=== PATIENT | male | born 1975 | race Caucasian/White ===

== ENCOUNTER 2020-01-05 10:20 | Emergency (ER) | payer OTHER ==
[2020-01-05 10:27] VITALS: BP 136/84; PULSE 73; RESP 19; TEMP 97.9
--- NOTE | 2020-01-05 11:19 | CT ---
EXAMINATION TYPE: CT brain wo con DATE OF EXAM: 01/05/2020 COMPARISON: None HISTORY: headache, light sensitivity, hx of head injury earlier this week CT DLP: 1099.[address] of the brain was performed. The ventricles, basal cisterns and sulci overlying the cerebral convexities demonstrate a normal appe arance. There is no evidence for intracranial hemorrhage or sulcal effacement. No mass effects are seen. Osseous calvarium is intact. If symptoms persist consider MRI as clinically warranted. IMPRESSION: 1. No acute intracranial process is seen at this time.
[2020-01-05] MEDS ORDERED: HYDROmorphone 0.5 MG/0.5 ML SYRINGE IVP STA (11:32)
[2020-01-05] MEDS ORDERED: KETOROLAC 30 MG/ML 1 ML VIAL IVP STA (11:33)
[2020-01-05] MEDS ORDERED: ONDANSETRON 4 MG/2 ML VIAL IVP STA (11:33)
[2020-01-05] MEDS ORDERED: SODIUM CHLORIDE 0.9% 1,000 ML IV ONE (11:33)
--- NOTE | 2020-01-05 11:55 | ED ---
Headache HPI - General Chief Complaint: Headache Stated Complaint: Dizziness Time Seen by Provider: 01/05/20 10:42 Mode of arrival: ambulatory Limitations: no limitations - History of Present Illness Initial Comments: 44-year-old male presenting for headache since 6:30AM. Patient states that he hit his head last he states he had sharp pains in his head that were bandlike from shinto to shinto. He states at times her pressure and other times they are sharp. Patient states he currently has similar pain that began this morning he states the headache had gone away after the day he does head. Patient states he does have history of chronic headaches and migraines. Patient states he has not taking any current prophylactic treatment. Patient denies a known history of aneurysm. Patient states that he did not have a headache at 11 PM when he went to bed he states he woke up this morning around 6:30 AM and a headache developed. He states it came on gradually denies sudden onset. Patient denies thunderclap headache. Patient denies this being worst headache of his life. Patient admits to light and sound sensitivity. States he feels like he is in a fog. She denies being unbalanced any speech changes visual changes loss of sensation or weakness of the extremities. Patient denies vomiting, states in the AM he was nausea for a few minutes but this went away. - Related Data Home Medications Medication Instructions Recorded Confirmed Ibuprofen [Motrin Ib] 600 mg PO Q8H PRN 01/05/20 01/05/20 Allergies Allergy/AdvReac Type Severity Reaction Status Date / Time Sulfa (Sulfonamide Allergy Rash/Hives Verified 01/05/20 11:16 Antibiotics) Review of Systems ROS Statement: Those systems with pertinent positive or pertinent negative responses have been documented in the HPI. ROS Other: All systems not noted in ROS Statement are negative. Past Medical History Past Medical History: Pneumonia History of Any Multi-Drug Resistant Organisms: None Reported Past Surgical History: Orthopedic Surgery Additional Past Surgical History / Comment(s): left knee scoped Past Psychological History: No Psychological Hx Reported Smoking Status: Current every day smoker Past Alcohol Use History: Occasional Past Drug Use History: None Reported General Exam - General Exam Comments Initial Comments: General: The patient is awake and alert, in no distress, and does not appear acutely ill. Eye: +3 mm pupils are equal, round and reactive to light, extra-ocular movements are intact. No nystagmus. There is normal conjunctiva bilaterally. No signs of icterus. Ears, nose, mouth and throat: There are moist mucous membranes and no oral lesions. Neck: The neck is supple, there is no tenderness or JVD. Cardiovascular: There is a regular rate and rhythm. No murmur, rub or gallop is appreciated. Respiratory: Lungs are clear to auscultation, respirations are non-labored, breath sounds are equal. No wheezes, stridor, rales, or rhonchi. Musculoskeletal: Normal ROM, no tenderness. Strength 5/5. Sensation intact. Pulses equal bilaterally 2+. Neurological: A&O x 3. CN II-XII intact grossly,memory intact to immediately, intermediate and nut orchardist recall. Able to follow simple verbal. Able to name a common object (pen). High quality, labial (pa) and lingual (la) speech. Low quality posterior pharynx/larynx (ga) voice sounds. Able to express general knowledge (days in a week). No hemineglect or inattention noted. Finger agnosia (-) and spatially oriented. Light touch and present over the face, chest, abdomen, back, UE bilaterally, and LE bilaterally. No visible bulk atrophy, hypertrophy, fasciculations, or myoclonus of the UE or LE b/l. Full PROM in UE and LE b/l. Bilateral muscle strength 5/5 for the following muscles: deltoid, biceps, triceps, brachioradialis, wrist extensors/flexor, hip flexor, hip abductors/adductors, hamstrings, quadriceps, feet dorsiflexors/plantar flexors. Finger to nose, finger to the examiners finger, and heel to kendall coordinated and accurate b/l. Coordinated and even demonstration of hand flip, finger to thumb, and toe tap b/l. Gait is coordinated and even in stride. Maintains balance with monopedal stance. (-) Romberg. (-) pronator drift. No nuchal rigidity. (-) Brudzinskis and Kernig signs. Skin: Skin is warm and dry and no rashes or lesions are noted. Psychiatric: Cooperative, appropriate mood & affect, normal judgment. Limitations: no limitations Course Vital Signs 01/05/20 10:23 Temperature 97.9 F Pulse Rate 73 Respiratory 19 Rate Blood Pressure 136/84 O2 Sat by Pulse 99 Oximetry - Reevaluation(s) Reevaluation #1: Patient reevaluation, just given medications, discussed CT results. Patient will be reevaluated in 30-45 minutes to assess the efficacy of the pain medications. 01/05/20 12:30 Medical Decision Making - Medical Decision Making 44-year-old male presenting today for chief complaint of headache. Patient states it began after he hit his head patient does of history of chronic migraines however this feels the same as the day when he hit his head initially on . Patient has no focal neurological deficits. CT (-). Symptoms resolved completely upon discharge. This concussion protocols as well as importance of primary neurology follow-up. Discussed return parameters patient verbalized understanding and was discharged. We'll after discussing the case with my attending provider Disposition Clinical Impression: Headache Disposition: HOME SELF-CARE Condition: Good Instructions (If sedation given, give patient instructions): Concussion (ED), Acute Headache (ED) Additional Instructions: Please use medication as discussed. Please follow-up with family doctor in the next 2 days, neurology as discussed and please refrain from exertional activity and activity with increased risk of head injury as discussed until symptom-free and evaluated by primary care provider. Please return to emergency room if the symptoms increase or worsen or for any other concerns. Is patient prescribed a controlled substance at d/c from ED?: No Referrals: Chip Hassan MD [Primary Care Provider] - 1-2 days Time of Disposition: 13:30
== END 2020-01-05 14:26 | disposition home or self-care (01) ==
LOC: EC 10:20
DX: R51 Headache (principal); H53.149 Visual discomfort, unspecified; R44.8 Other symptoms and signs involving general sensations and perceptions; F17.200 Nicotine dependence, unspecified, uncomplicated; Z88.2 Allergy status to sulfonamides; Z86.69 Personal history of other diseases of the nervous system and sense organs; W22.8XXA Striking against or struck by other objects, initial encounter
CPT/HCPCS: 99283 ×2; 96374 ×2; 96375 ×3; 96361 ×2; 70450; J2405; J1885; J1170

== ENCOUNTER 2021-10-07 22:01 | Emergency (ER) | payer BC, OTHER ==
[2021-10-07 22:22] VITALS: BP 122/79; PULSE 92; RESP 18; TEMP 98.1
--- NOTE | 2021-10-07 22:49 | ED ---
General Adult HPI - General Chief complaint: Extremity Injury, Lower Stated complaint: R foot injury Time Seen by Provider: 10/07/21 22:35 Source: patient, RN notes reviewed Mode of arrival: ambulatory Limitations: no limitations - History of Present Illness Initial comments: 45-year-old male patient, alert and oriented 4, presents to the emergency room with complaints of right foot pain. Patient states that he tripped today at 1400 on uneven concrete and has pain along the top and lateral aspect of his right foot. There is some redness. Minimal swelling. He states that it is worse with weightbearing but he is pain-free with elevation. He denies ankle pain or leg pain. He states he took Aleve around 5:30. -: hour(s) (8) Location: right, lower extremity (foot) Severity scale (1-10): 10 Quality: aching Consistency: intermittent Improves with: immobilization Worsens with: other (weight bearing) Associated Symptoms: denies other symptoms Treatments Prior to Arrival: NSAID - Related Data Home Medications Medication Instructions Recorded Confirmed Ibuprofen [Motrin Ib] 600 mg PO Q8H PRN 01/05/20 01/05/20 Allergies Allergy/AdvReac Type Severity Reaction Status Date / Time Sulfa (Sulfonamide Allergy Rash/Hives Verified 10/07/21 22:22 Antibiotics) Review of Systems ROS Statement: Those systems with pertinent positive or pertinent negative responses have been documented in the HPI. ROS Other: All systems not noted in ROS Statement are negative. Past Medical History Past Medical History: Pneumonia History of Any Multi-Drug Resistant Organisms: None Reported Past Surgical History: Orthopedic Surgery Additional Past Surgical History / Comment(s): left knee scoped Past Psychological History: No Psychological Hx Reported Smoking Status: Current every day smoker Past Alcohol Use History: Occasional Past Drug Use History: None Reported General Exam Limitations: no limitations General appearance: alert, in no apparent distress Head exam: Present: atraumatic, normocephalic, normal inspection Eye exam: Present: normal appearance, EOMI Neck exam: Present: normal inspection, full ROM. Absent: tenderness, meningismus, lymphadenopathy Respiratory exam: Present: normal lung sounds bilaterally. Absent: respiratory distress, wheezes, rales, rhonchi, stridor Cardiovascular Exam: Present: regular rate, normal rhythm, normal heart sounds. Absent: systolic murmur, diastolic murmur, rubs, gallop, clicks Right Ankle exam: Present: normal inspection. Absent: tenderness, swelling Foot/Toe exam: Present: full ROM, tenderness (Base of the fourth and fifth digits plantar surface, lateral aspect of 5th metatarsal) Neurovascular tendon exam: Present: no vascular compromise. Absent: abnormal cap refill, extremity cold to touch, pallor Neurological exam: Present: alert, oriented X3 Psychiatric exam: Present: normal affect, normal mood Skin exam: Present: warm, dry, intact, normal color. Absent: rash Course Vital Signs 10/07/21 22:18 Temperature 98.1 F Pulse Rate 92 Respiratory 18 Rate Blood Pressure 122/79 O2 Sat by Pulse 98 Oximetry Medical Decision Making - Medical Decision Making X-ray of the right foot shows metatarsals are intact and no fracture or dislocation noted. Joint spaces are normal. Patient will be placed in an ortho shoe for comfort and directed to follow up with his primary care doctor next week. Rest, ice elevate at home. Motrin every 8 hours for pain. Patient was able to ambulate out of the emergency room. Disposition Clinical Impression: Foot pain, right Disposition: HOME SELF-CARE Condition: Good Instructions (If sedation given, give patient instructions): Foot Sprain (ED) Additional Instructions: Rest, ice, and elevate. Wear the ortho shoe for comfort. Motrin every 8 hours for pain or swelling. Follow-up with the primary care doctor next week. Is patient prescribed a controlled substance at d/c from ED?: No Referrals: Chip Hassan MD [Primary Care Provider] - 1-2 days Time of Disposition: 23:21
--- NOTE | 2021-10-07 23:15 | XR ---
EXAMINATION TYPE: XR foot complete RT DATE OF EXAM: 10/07/2021 COMPARISON: NONE HISTORY: Foot pain TECHNIQUE: 3 views FINDINGS: Metatarsals are intact. I see no fracture nor dislocation. Joint spaces are normal. IMPRESSION: Negative right foot exam
== END 2021-10-07 23:40 | disposition home or self-care (01) ==
LOC: EC 22:01
DX: M79.671 Pain in right foot (principal); F17.200 Nicotine dependence, unspecified, uncomplicated; Z88.2 Allergy status to sulfonamides
CPT/HCPCS: 99283